=== PATIENT | female | born 1965 | race Caucasian/White ===

== ENCOUNTER 2017-08-13 10:35 | Emergency (ER) | payer MEDICAID ==
[~2017-08-13] VITALS: Ht 162.6 cm; Wt 96.0 kg
[~2017-08-13 10:35] MED LIST: ALBUTEROL; DILANTIN; INSULIN
[2017-08-13] MEDS ORDERED: CLON0.1T PO (10:42)
[2017-08-13] MEDS ORDERED: KEPP500 PO (10:42)
[2017-08-13] MEDS ORDERED: PHEN15TA18 PO (10:42)
[2017-08-13] MEDS ORDERED: IBUPROFEN 600MG TABLET PO ONE (11:00)
[2017-08-13 14:19] VITALS: BP 128/79
== END 2017-08-13 14:29 | disposition home or self-care (01) ==
LOC: ER 10:44
DX: S92.355A Nondisplaced fracture of fifth metatarsal bone, left foot, initial encounter for closed fracture (principal); G40.909 Epilepsy, unspecified, not intractable, without status epilepticus; M32.9 Systemic lupus erythematosus, unspecified; J45.909 Unspecified asthma, uncomplicated; I51.9 Heart disease, unspecified; E11.9 Type 2 diabetes mellitus without complications; Z79.4 Long term (current) use of insulin; Z86.73 Personal history of transient ischemic attack (TIA), and cerebral infarction without residual deficits; Z88.0 Allergy status to penicillin; W01.0XXA Fall on same level from slipping, tripping and stumbling without subsequent striking against object, initial encounter; Y93.89 Activity, other specified; Y92.018 Other place in single-family (private) house as the place of occurrence of the external cause
CPT/HCPCS: 73620; 99284; Z7610

== ENCOUNTER 2017-11-21 19:36 | Emergency (ER) | payer MEDICAID, OTHER ==
[~2017-11-21] VITALS: Ht 162.6 cm; Wt 72.0 kg
[~2017-11-21 19:36] MED LIST changes: +CLON0.1T PO; +KEPP500 PO; +PHEN15TA18 PO
[2017-11-21 21:02] VITALS: BP 119/75
== END 2017-11-21 21:10 | disposition left against medical advice (07) ==
LOC: ER 19:41
DX: G40.909 Epilepsy, unspecified, not intractable, without status epilepticus (principal); J45.909 Unspecified asthma, uncomplicated; E11.9 Type 2 diabetes mellitus without complications; I10 Essential (primary) hypertension; Z79.4 Long term (current) use of insulin; Z85.028 Personal history of other malignant neoplasm of stomach; Z88.0 Allergy status to penicillin
CPT/HCPCS: 99283; Z7610

== ENCOUNTER 2018-03-27 07:21 | Emergency (ER) | payer OTHER ==
[~2018-03-27] VITALS: Ht 167.6 cm; Wt 100.0 kg
[2018-03-27] MEDS ORDERED: SODIUM CHLORIDE 0.9% 500 ML IV ONE (07:42)
[2018-03-27 08:04] LABS: BASOPHILS % 0.9 % (0.0-2.0); EOSINOPHILS % 0.8 % (0.0-5.0); HEMATOCRIT. 37.2 % (36.0-48.0); HEMOGLOBIN. 12.9 g/dL (12.0-16.0); LYMPHOCYTES % 34.4 % (20.0-50.0); MEAN CORPUSCULAR HEMOGLOBIN 32.3 pg (28.0-32.0); MEAN CORPUSCULAR VOLUME 92.9 fL (81.0-99.0); MEAN PLATELET VOLUME 7.8 fl (7.4-10.4); MONOCYTES % 9.7 % (2.0-8.0); NEUTROPHILS % 54.2 % (40.0-76.0); PLATELET 231 x1000/uL (130-400); RED CELL DISTRIBUTION WIDTH 14.7 % (11.6-14.6)
[2018-03-27 08:09] LABS: CHLORIDE 107 mEq/L (98-107)
[2018-03-27 08:11] LABS: INR 1.1; PROTHROMBIN TIME 11.7 sec (9.4-11.6)
[2018-03-27 08:20] LABS: CREATINE KINASE MB FRACTION 2.8 ng/mL (0.5-3.6)
[2018-03-27] MEDS ORDERED: ACETAMINOPHEN 325MG TABLET PO ONE (09:15)
[2018-03-27 09:56] LABS: PHENOBARBITAL < 2.1 ug/mL (15.0-40.0)
[2018-03-27] MEDS ORDERED: LEVETIRACETAM 500MG PREMIX 100 ML IV ONE (11:00)
[2018-03-27] MEDS ORDERED: KETOROLAC 15MG/ML VIAL IV ONE (11:00)
[2018-03-27 11:40] VITALS: BP 128/93
== END 2018-03-27 12:02 | disposition home or self-care (01) ==
LOC: ER 07:21
DX: R56.9 Unspecified convulsions (principal); S09.8XXA Other specified injuries of head, initial encounter; S16.1XXA Strain of muscle, fascia and tendon at neck level, initial encounter; R74.0 Nonspecific elevation of levels of transaminase and lactic acid dehydrogenase [LDH]; I10 Essential (primary) hypertension; E11.9 Type 2 diabetes mellitus without complications; J45.909 Unspecified asthma, uncomplicated; Z79.4 Long term (current) use of insulin; Z88.0 Allergy status to penicillin; Z79.01 Long term (current) use of anticoagulants; Z91.14 Patient's other noncompliance with medication regimen; X58.XXXA Exposure to other specified factors, initial encounter; Y93.89 Activity, other specified; Y92.9 Unspecified place or not applicable
CPT/HCPCS: 36415; 70450; 71045; 72125; 80053; 80184; 80185; 82542; 82553; 83735; 85025; 85610; 93005; 96361; 96365; 96375; 99285; J1885; J1953; J7040; Z7610; L0172

== ENCOUNTER 2019-05-28 14:09 | Emergency (ER) | payer MEDICAID ==
[~2019-05-28] VITALS: Ht 172.7 cm; Wt 80.0 kg
[~2019-05-28 14:09] MED LIST changes: -ALBUTEROL; +AMLO2.5T45 PO; -DILANTIN; +GABA800T97 PO; -INSULIN; +LANTUSUD SUBCUT; +PANT40TA4 PO; +PHEN100C12 PO
[2019-05-28] MEDS ORDERED: SODIUM CHLORIDE 0.9% 1,000 ML IV ONE (14:32)
[2019-05-28 15:24] LABS: BASOPHILS % 0.8 % (0.0-2.0); EOSINOPHILS % 1.6 % (0.0-5.0); HEMATOCRIT. 37.9 % (36.0-48.0); HEMOGLOBIN. 12.9 g/dL (12.0-16.0); LYMPHOCYTES % 36.8 % (20.0-50.0); MEAN CORPUSCULAR HEMOGLOBIN 32.4 pg (28.0-32.0); MEAN PLATELET VOLUME 7.9 fl (7.4-10.4); MONOCYTES % 12.4 % (2.0-8.0); NEUTROPHILS % 48.4 % (40.0-76.0); PLATELET 236 x1000/uL (130-400); RED BLOOD CELL COUNT 3.99 mill/uL (4.2-5.4); RED CELL DISTRIBUTION WIDTH 15.5 % (11.6-14.6)
[2019-05-28 15:30] LABS: CHLORIDE 105 mEq/L (98-107)
[2019-05-28 15:34] LABS: ETHANOL BLOOD < 10 mg/dL
[2019-05-28 16:26] LABS: CLARITY URINE CLOUDY (CLEAR); COLOR URINE YELLOW (YELLOW); KETONES URINE NEGATIVE (NEGATIVE); LEUKOCYTE ESTERASE URINE NEGATIVE (NEGATIVE); NITRITE URINE NEGATIVE (NEGATIVE); OCCULT BLOOD URINE NEGATIVE (NEGATIVE); PROTEIN URINE NEGATIVE (NEGATIVE); SPECIFIC GRAVITY URINE 1.022 (1.005-1.030); UROBILINOGEN URINE 0.2 E.U./dL (0.2-1.0)
[2019-05-28 16:37] LABS: *AMPHETAMINES SCREEN URINE NEGATIVE (NEGATIVE); *BARBITURATES SCREEN URINE PRESUMTIVE POSITIVE (NEGATIVE); *BENZODIAZEPINES SCREEN URINE NEGATIVE (NEGATIVE); *COCAINE SCREEN URINE PRESUMTIVE POSITIVE (NEGATIVE); METHADONE URINE SCREEN NEGATIVE (NEGATIVE); OPIATES URINE SCREEN NEGATIVE (NEGATIVE)
[2019-05-28 16:38] LABS: CANNABINOID URINE SCREEN NEGATIVE (NEGATIVE); PHENCYCLIDINE URINE SCREEN NEGATIVE (NEGATIVE)
[2019-05-28 22:24] VITALS: BP 128/88
== END 2019-05-28 22:25 | disposition home or self-care (01) ==
LOC: ER 14:09
DX: T40.5X1A Poisoning by cocaine, accidental (unintentional), initial encounter (principal); Y92.9 Unspecified place or not applicable; J45.909 Unspecified asthma, uncomplicated; E11.9 Type 2 diabetes mellitus without complications; I10 Essential (primary) hypertension; Z79.4 Long term (current) use of insulin; Z85.9 Personal history of malignant neoplasm, unspecified; Z88.0 Allergy status to penicillin
CPT/HCPCS: 36415; 70450; 71045; 80053; 80305; 80307; 80320; 80329; 81003; 82962; 83605; 84484; 85025; 93005; 96360; 96361; 99284; J7030; G0480

== ENCOUNTER 2019-06-10 06:20 | Inpatient (IN) | payer MEDICAID ==
[~2019-06-10] VITALS: Ht 162.6 cm; Wt 104.8 kg
[2019-06-10] MEDS ORDERED: SODIUM CHLORIDE 0.9% 1000ML BAG (SEPSIS BOLUS) IV ONE (06:45)
[2019-06-10 08:18] LABS: BASOPHILS % 0.3 % (0.0-2.0); EOSINOPHILS % 1.3 % (0.0-5.0); HEMATOCRIT. 37.4 % (36.0-48.0); HEMOGLOBIN. 12.5 g/dL (12.0-16.0); LYMPHOCYTES % 24.6 % (20.0-50.0); MEAN CORPUSCULAR HEMOGLOBIN 31.7 pg (28.0-32.0); MEAN CORPUSCULAR VOLUME 95.2 fL (81.0-99.0); MEAN PLATELET VOLUME 8.3 fl (7.4-10.4); MONOCYTES % 8.8 % (2.0-8.0); PLATELET 291 x1000/uL (130-400); RED BLOOD CELL COUNT 3.93 mill/uL (4.2-5.4)
[2019-06-10 08:22] LABS: CHLORIDE 104 mEq/L (98-107)
[2019-06-10 08:26] LABS: PROTHROMBIN TIME 10.7 sec (9.6-11.0)
[2019-06-10] MEDS ORDERED: TRAMADOL 50MG TABLET PO ONE (09:15)
[2019-06-10 12:30] VITALS: BP 108/66
[2019-06-10] MEDS ORDERED: TRAMADOL 50MG TABLET PO PRN (12:30)
[2019-06-10] MEDS ORDERED: DEXTROSE 50% WATER 50ML SYRINGE IV PRN (13:15)
[2019-06-10] MEDS: HYDROCODONE/ACETAMINOPHEN 10/325MG TABLET PO PRN (14:21)
[2019-06-10] MEDS: ENOXAPARIN 40MG/0.4ML SYR SUBCUT SCH (14:21)
[2019-06-10 16:00] VITALS: BP_SYST 102; BP_SYST 111; BP_SYST 115; BP_DIAS 67; BP_DIAS 79; BP_DIAS 80
[2019-06-10] MEDS: INSULIN LISPRO 100 UNITS/ML SUBCUT SCH ×2 (17:15→21:00)
[2019-06-10] MEDS: BLOOD SUGAR DIAGNOSTIC STRIP TEST SCH ×2 (17:26→21:18)
[2019-06-10] MEDS: LEVETIRACETAM 500MG TABLET PO SCH (18:16)
[2019-06-10] MEDS: PHENYTOIN SODIUM EXTENDED 100MG CAPSULE PO SCH (18:16)
[2019-06-10 20:00] VITALS: BP 134/84
[2019-06-11] VITALS: BP 119/97
[2019-06-11] MEDS: ENOXAPARIN 40MG/0.4ML SYR SUBCUT SCH ×2 (00:54→08:34)
[2019-06-11] MEDS ORDERED: LORAZEPAM 2MG/ML CPJ IV PRN (01:30)
[2019-06-11] MEDS: HYDROCODONE/ACETAMINOPHEN 10/325MG TABLET PO PRN ×2 (03:06→12:26)
[2019-06-11 04:00] VITALS: BP_SYST 125; BP_SYST 137; BP_SYST 139; BP_DIAS 100; BP_DIAS 94; BP_DIAS 98
[2019-06-11] MEDS ORDERED: INFLUENZA VIRUS VACCINE(AFLURIA) 0.5ML SYR IM ONE (06:15)
[2019-06-11] MEDS: BLOOD SUGAR DIAGNOSTIC STRIP TEST SCH ×2 (06:23→12:14)
[2019-06-11] MEDS: INSULIN LISPRO 100 UNITS/ML SUBCUT SCH ×2 (06:23→12:14)
[2019-06-11 06:47] LABS: BASOPHILS % 0.4 % (0.0-2.0); EOSINOPHILS % 1.5 % (0.0-5.0); HEMATOCRIT. 32.2 % (36.0-48.0); LYMPHOCYTES % 32.7 % (20.0-50.0); MEAN CORPUSCULAR VOLUME 94.1 fL (81.0-99.0); NEUTROPHILS % 52.4 % (40.0-76.0); PLATELET 263 x1000/uL (130-400); RED BLOOD CELL COUNT 3.42 mill/uL (4.2-5.4); RED CELL DISTRIBUTION WIDTH 15.2 % (11.6-14.6)
[2019-06-11 06:56] LABS: CHLORIDE 106 mEq/L (98-107)
[2019-06-11 08:00] VITALS: BP_SYST 147; BP_SYST 156; BP_SYST 159; BP_DIAS 90; BP_DIAS 92; BP_DIAS 98
[2019-06-11] MEDS: LEVETIRACETAM 500MG TABLET PO SCH (08:33)
[2019-06-11] MEDS: PHENYTOIN SODIUM EXTENDED 100MG CAPSULE PO SCH (08:34)
[2019-06-11 12:00] VITALS: BP 177/97
[2019-06-11 12:14] LABS: CLARITY URINE CLOUDY (CLEAR); COLOR URINE YELLOW (YELLOW); KETONES URINE NEGATIVE (NEGATIVE); LEUKOCYTE ESTERASE URINE NEGATIVE (NEGATIVE); NITRITE URINE NEGATIVE (NEGATIVE); OCCULT BLOOD URINE TRACE (NEGATIVE); PH URINE 7.5 (4.5-8.0); PROTEIN URINE NEGATIVE (NEGATIVE); SPECIFIC GRAVITY URINE 1.012 (1.005-1.030)
[2019-06-11 12:38] LABS: *AMPHETAMINES SCREEN URINE NEGATIVE (NEGATIVE); *BARBITURATES SCREEN URINE PRESUMTIVE POSITIVE (NEGATIVE); *BENZODIAZEPINES SCREEN URINE NEGATIVE (NEGATIVE); *COCAINE SCREEN URINE NEGATIVE (NEGATIVE)
[2019-06-11 12:39] LABS: CANNABINOID URINE SCREEN NEGATIVE (NEGATIVE); METHADONE URINE SCREEN NEGATIVE (NEGATIVE); OPIATES URINE SCREEN NEGATIVE (NEGATIVE); PHENCYCLIDINE URINE SCREEN NEGATIVE (NEGATIVE)
[2019-06-11 13:50] VITALS: BP 147/92
[2019-06-11] MEDS ORDERED: ENOXAPARIN 30MG/0.3ML SYR SUBCUT SCH (21:00)
== END 2019-06-11 14:55 | disposition home or self-care (01) | DRG 48 ==
LOC: ER 06:20 → 5WST 10:52 → EDBEDREQ 10:54 → EDBEDREQTM 10:54 → EDBEDREQSVC 10:54 → ENRESERV 11:16
PROVIDERS: ADMIT Internal Medicine; ATTEND Internal Medicine
DX: G90.8 Other disorders of autonomic nervous system (principal); K92.0 Hematemesis; E66.01 Morbid (severe) obesity due to excess calories; I48.0 Paroxysmal atrial fibrillation; R04.2 Hemoptysis; R13.10 Dysphagia, unspecified; C50.919 Malignant neoplasm of unspecified site of unspecified female breast; G40.909 Epilepsy, unspecified, not intractable, without status epilepticus; E11.9 Type 2 diabetes mellitus without complications; F14.90 Cocaine use, unspecified, uncomplicated; R07.89 Other chest pain; F32.9 Major depressive disorder, single episode, unspecified; G43.909 Migraine, unspecified, not intractable, without status migrainosus; I10 Essential (primary) hypertension; J44.9 Chronic obstructive pulmonary disease, unspecified; M10.9 Gout, unspecified; M19.90 Unspecified osteoarthritis, unspecified site; W18.30XA Fall on same level, unspecified, initial encounter; Z79.4 Long term (current) use of insulin; Z79.899 Other long term (current) drug therapy; Z85.3 Personal history of malignant neoplasm of breast; Z71.3 Dietary counseling and surveillance; Z86.73 Personal history of transient ischemic attack (TIA), and cerebral infarction without residual deficits; Z68.39 Body mass index [BMI] 39.0-39.9, adult
CPT/HCPCS: 36415; 71045; 73590; 80048; 80185; 80305; 81003; 82962; 83036; 83605; 84145; 84484; 87077; 87186; 90686; 93005; 93306; 93971; 97162; 99285; J1650; J2060; J7030

== ENCOUNTER 2020-04-03 00:55 | Emergency (ER) | payer MEDICAID ==
[~2020-04-03] VITALS: Ht 152.4 cm; Wt 113.0 kg
[2020-04-03 01:39] LABS: BASOPHILS % 0.8 % (0.0-2.0); EOSINOPHILS % 2.6 % (0.0-5.0); HEMOGLOBIN. 12.3 g/dL (12.0-16.0); LYMPHOCYTES % 31.7 % (20.0-50.0); MEAN CORPUSCULAR HEMOGLOBIN 32.1 pg (28.0-32.0); MEAN CORPUSCULAR VOLUME 94.1 fL (81.0-99.0); MEAN PLATELET VOLUME 7.3 fl (7.4-10.4); MONOCYTES % 14.2 % (2.0-8.0); NEUTROPHILS % 50.7 % (40.0-76.0); PLATELET 315 x1000/uL (130-400); RED BLOOD CELL COUNT 3.82 mill/uL (4.2-5.4); RED CELL DISTRIBUTION WIDTH 15.6 % (11.6-14.6)
[2020-04-03 01:46] LABS: CHLORIDE 105 mEq/L (98-107)
[2020-04-03 01:50] LABS: ETHANOL BLOOD < 10 mg/dL
[2020-04-03] MEDS ORDERED: IBUPROFEN 600MG TABLET PO ONE (03:30)
[2020-04-03 03:40] VITALS: BP 133/76
== END 2020-04-03 04:03 | disposition home or self-care (01) ==
LOC: ER 00:55
DX: F14.90 Cocaine use, unspecified, uncomplicated (principal); R51 Headache; J45.909 Unspecified asthma, uncomplicated; E11.9 Type 2 diabetes mellitus without complications; I10 Essential (primary) hypertension; M32.9 Systemic lupus erythematosus, unspecified; R56.9 Unspecified convulsions; Z88.0 Allergy status to penicillin; Z99.3 Dependence on wheelchair
CPT/HCPCS: 36415; 80053; 80320; 85025; 99284; G0480